=== PATIENT | female | born 1975 ===

== ENCOUNTER 2017-11-15 15:31 | Emergency (ER) | payer BC, MEDICAID ==
[2017-11-15 15:32] VITALS: BMI 43.0
[2017-11-15 15:49] VITALS: BP 124/69; PULSE 93; RESP 20; TEMP 98.3; O2SAT 98
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
== END 2017-11-15 17:43 | disposition home or self-care (01) ==
LOC: C.ER 15:31
DX: F32.9 Major depressive disorder, single episode, unspecified (principal)